=== PATIENT | female | born 1945 | race Two or more races ===

== ENCOUNTER → 2018-07-09 | Outpatient (CLI) | payer OTHER | END | disposition home or self-care (01) | LOC: RX STUDY 09:15 | DX: R10.13 Epigastric pain (principal) ==

== ENCOUNTER 2019-01-14 11:15 | Emergency (ER) | payer OTHER ==
[~2019-01-14] VITALS: Ht 162.6 cm; Wt 67.1 kg
[2019-01-14] MEDS ORDERED: DILTIAZEM 24HR240 MG (11:22)
[2019-01-14] MEDS ORDERED: AVALIDE 300-121 EACH (11:22)
== END 2019-01-14 16:25 | disposition home or self-care (01) ==
LOC: ER 11:15
DX: E86.0 Dehydration (principal)